=== PATIENT | female | born 1980 ===

== ENCOUNTER 2018-06-30 18:18 | Emergency (ER) | payer BC ==
[2018-06-30 18:43] VITALS: BP 118/74
[2018-06-30] MEDS ORDERED: Ibuprofen TAB* 600 MG PO ONE (19:50)
--- NOTE | 2018-06-30 19:52 | UC ---
Neck Pain HPI - HPI Summary HPI Summary: This patient is a 38 year old F [place] [facility] [place] with a chief complaint of neck and shoulder pain that began last night. The patient rates the pain 7/10 in severe and describes it as being in her right trapezius. Symptoms aggravated by moving her right arm and right leg. Patient reports neck stiffness. Patient denies injury, SOB, and trouble breathing. The pain began while she was sitting reading at her computer. She states she has had similar pain in the past and after 2-3 days it resolved. She has not taking any medications for the pain - History of Current Complaint Chief Complaint: UCUpperExtremity Stated Complaint: SHOULDER PAIN Time Seen by Provider: 06/30/18 19:44 Hx Obtained From: Patient Hx Last Menstrual Period: IRREGULAR (STATES A HALF MONTH) Onset/Duration Of Injury/Symptoms: Hours Mechanism Of Injury: No Known Trauma Timing: Constant Onset/Duration: Lasting Hours, Still Present Severity: Moderate Pain Intensity: 7 Pain Scale Used: 0-10 Numeric Location: Discrete At: - NECK AND RIGHT TRAP Aggravating Factors: Movement Associated Signs & Symptoms: Positive: Negative - sob and trouble breathing - Allergies/Home Medications Allergies/Adverse Reactions: Allergies Allergy/AdvReac Type Severity Reaction Status Date / Time No Known Allergies Allergy Verified 06/30/18 18:43 PMH/Surg Hx/FS Hx/Imm Hx Neurological History: Other Other Neurological History: neck pain Other History Of: Negative For: Hepatitis B, Hepatitis C, Anticoagulant Therapy - Surgical History Surgical History: Yes Surgery Procedure, Year, and Place: - Family History Known Family History: Negative: Respiratory Disease, Seizure Disorder, Blood Disorder - Social History Lives: With Family Alcohol Use: None Substance Use Type: None Smoking Status (MU): Never Smoked Tobacco Review Of Systems Respiratory: Positive: Negative - SOB Musculoskeletal: Positive: Other: - neck and right tap pain All Other Systems Reviewed And Are Negative: Yes Physical Exam - Summary Physical Exam Summary: General: well-appearing, no pain distress Skin: warm, color reflects adequate perfusion, dry Head: normal Eyes: EOMI, RHEA ENT: normal Neck: supple, nontender Respiratory: CTA, breath sounds present Cardiovascular: RRR Abdomen: soft, nontender Bowel: present Musculoskeletal: strength/ROM intact, TTP at the right lower lateral neck and right trapezius. The neck and the shoulder have good ROM and there are normal pulses Neurological: sensory/motor intact, A&O x3, no deficits Psychological: affect/mood appropriate Triage Information Reviewed: Yes Vital Signs: Initial Vital Signs Temp 99.4 F 06/30/18 18:35 Pulse 75 06/30/18 18:35 Resp 16 06/30/18 18:35 BP 118/74 06/30/18 18:35 Pulse Ox 99 06/30/18 18:35 Vital Signs Reviewed: Yes Diagnostics - Radiology neck xray Radiology Interpretation Completed By: ED Physician - Straightening of the cervical curvature. No acute disease otherwise. Pending official report Neck Pain Course/Dx - Course Course Of Treatment: Discussed the x-rays with the patient and her family. Radiologist reading is pending. Her right-sided upper thoracic and right neck muscles appear on exam to be in spasm. There is no neurologic deficit. At this time we'll treat with ibuprofen 600 mg every 6 hours as needed. And Flexeril when necessary. Follow up with her primary care doctor. Recheck sooner if worse. - Differential Dx/Diagnosis Provider Diagnoses: RIGHT NECK AND UPPER THORACIC PAIN Discharge - Sign-Out/Discharge Documenting (check all that apply): Patient Departure All imaging exams completed and their final reports reviewed: No - Discharge Plan Condition: Stable Disposition: HOME Prescriptions: Cyclobenzaprine TAB* [Flexeril 10 MG TAB*] 10 mg PO TID PRN #15 tab MDD 3 PRN Reason: Pain Patient Education Materials: Acute Neck Pain (ED) Referrals: [facility] [place] PH[facility]IAN REFERRAL [Outside] Additional Instructions: FOLLOW UP WITH YOUR DOCTOR IF NOT COMPLETELY IMPROVED. TAKE IBUPROFEN 600MG EVERY 6 HOURS NEEDED. GET RECHECKED FOR ANY WORSENING OF YOUR CONDITION; PAIN, WEAKNESS, NUMBNESS OR QUESTIONS OR CONCERNS. - Billing Disposition and Condition Condition: STABLE Disposition: Home - Attestation Statements Document Initiated by Scribe: Yes Documenting Scribe: Alexander Cardenas Provider For Whom Raza is Documenting (Include Credential): Russ Colbert MD Scribe Attestation: Alexander Stallings , scribed for Russ Colbert MD on 06/30/18 at 2212. Scribe Documentation Reviewed: Yes Provider Attestation: The documentation as recorded by the Alexander rosales accurately reflects the service I personally performed and the decisions made by , Russ Colbert MD
[2018-06-30] MEDS ORDERED: Cyclobenzaprine TAB* 10 MG PO ONE (20:37)
--- NOTE | 2018-07-01 08:01 | RAD ---
INDICATION: Right neck and shoulder pain x2 days COMPARISON: None. TECHNIQUE: 5 views of the cervical spine were obtained. FINDINGS: C1-C7 are visualized. There is nonspecific straightening of the normal cervical lordosis. Otherwise the vertebra are in normal alignment. No prevertebral soft tissue swelling or fracture is seen. Disc spaces appear maintained. IMPRESSION: Nonspecific straightening of the normal cervical lordosis in this otherwise normal C-spine radiograph. If the patient's symptoms persist, follow-up imaging is recommended. R0
--- NOTE | 2018-07-01 15:23 | UC ---
- Progress Note Progress Note: OFFICIAL RADIOLOGY REPORT CONFIRMS Nonspecific straightening of the normal cervical lordosis in this otherwise normal C-spine radiograph. NO CHANGE IN MGMT. - ROOSEVELT WALTON MD Discharge - Sign-Out/Discharge Documenting (check all that apply): Post-Discharge Follow Up All imaging exams completed and their final reports reviewed: Yes - Discharge Plan Condition: Stable Disposition: HOME Prescriptions: Cyclobenzaprine TAB* [Flexeril 10 MG TAB*] 10 mg PO TID PRN #15 tab MDD 3 PRN Reason: Pain Patient Education Materials: Acute Neck Pain (ED) Referrals: [facility] [place] [facility]IAN REFERRAL [Outside] Additional Instructions: FOLLOW UP WITH YOUR DOCTOR IF NOT COMPLETELY IMPROVED. TAKE IBUPROFEN 600MG EVERY 6 HOURS NEEDED. GET RECHECKED FOR ANY WORSENING OF YOUR CONDITION; PAIN, WEAKNESS, NUMBNESS OR QUESTIONS OR CONCERNS. - Billing Disposition and Condition Condition: STABLE Disposition: Home
== END 2018-06-30 20:52 | disposition home or self-care (01) ==
LOC: UCEAST 18:18
DX: M54.2 Cervicalgia (principal); M54.6 Pain in thoracic spine
CPT/HCPCS: 72050; 99202; A9270-GY; G0463